=== PATIENT | male | born 1985 | race African-American/Black ===

== ENCOUNTER 2018-04-24 17:01 | Emergency (ER) | payer MEDICAID, SELFPAY ==
[2018-04-24 17:57] VITALS: BP 128/77; PULSE 82; RESP 14; TEMP 37; O2SAT 98; BMI 21.5
--- NOTE | 2018-04-24 19:39 | ED.DCSUM_ITS ---
- ER Visit Summary Date of Service: 04/24/18 Chief Complaint: Cough History of Present Illness: The patient is a 32 M presenting with cough. He states this is been ongoing for the past week. He has had sputum production. He denies fever. He complains of nausea with no vomiting. He complains of body aches. He complains of headache. He has felt lightheaded with no syncope. He has multiple sick contacts. He is currently staying at [facility] and states that everyone is sick there. He has chest pain only when he coughs. He denies shortness of breath. Physical Examination: Vitals are stable. Patient is afebrile. Alert no acute distress. HEENT exam is unremarkable. Neck is supple. No meningismus. Lungs are clear and equal bilaterally. Heart is regular rate and rhythm. Abdomen is soft nontender nondistended. Extremities are unremarkable. Skin is warm and dry. No rash. No focal neurologic deficit. Remainder of exam is unremarkable. Emergency Department Course and Treatment: Chest x-ray shows no acute process. Influenza negative. Patient is given a prescription for Tessalon Perles. Advised to follow-up with Dr. Reis second steward for no doc. Advised return to ED if worsening complaints. Disposition: Discharge home Impression: Bronchitis This note was generated with [employer] dictation software. It may contain incorrect words, spelling, and punctuation that were not noted in review of the chart prior to signing
--- NOTE | 2018-04-24 20:05 | RAD_ITS ---
STUDY: X-RAY CHEST REASON FOR EXAM: Male, 32 years old. Cough, lightheadedness and decreased appetite and inability to sleep. TECHNIQUE: 2 views COMPARISON: None. FINDINGS: The lungs are clear and expanded. There is no demonstrated pleural abnormality. Normal size heart. Normal mediastinum and annia. Normal visualized pulmonary arteries. Normal visualized aortic arch and descending thoracic aorta. Normal visualized thoracic spine. Normal visualized ribs, clavicles, and shoulders. There is no demonstrated abnormality of the visualized soft tissue structures of the upper abdomen. RAD/Chest PA and Lateral IMPRESSION: Normal x-ray examination of the chest. Electronically Signed: Reanna Enamorado MD at 20:54 EST , Service support ,
--- NOTE | 2018-04-24 21:19 | ED.DEP ---
ED Disposition - Plan for ED Patient: Instructions: ED Upper Resp Infec No Abx Tx Prescriptions: Benzonatate [Tessalon Perle] 200 mg PO TID PRN PRN #20 capsule PRN Reason: Cough Referrals: Care Physician,No Primary [Primary Care Provider] - Dawson Reis MD [STAFF PHYSICIAN] -
== END 2018-04-24 21:45 | disposition home or self-care (01) ==
LOC: ED 19:41
PROVIDERS: Emergency Provider Emergency Medicine
DX: J40 Bronchitis, not specified as acute or chronic (principal); R42 Dizziness and giddiness; Z72.0 Tobacco use
CPT/HCPCS: 71046; 87804; 99284